=== PATIENT | female | born 1990 | race Caucasian/White ===

== ENCOUNTER 2016-05-29 10:04 | Inpatient (IN) | payer OTHER ==
[2016-05-29] MEDS ORDERED: OXYTOCIN IN LR 500 ML IV ONE ×2 (10:35→10:45)
[2016-05-29] MEDS ORDERED: IV START KIT ONE (10:44)
[2016-05-29] MEDS ORDERED: OXYTOCIN 10 UNITS/ML VIAL ONE (10:44)
[2016-05-29] MEDS ORDERED: LACTATED RINGERS 1,000 ML ONE (10:45)
[2016-05-29] MEDS ORDERED: VANCOMYCIN HCL 1 G in SODIUM CHLORIDE 0.9% 250 ML IV SCH (10:45)
[2016-05-29] MEDS ORDERED: LIDOCAINE Viscous 2% 15 ML UDCUP ONE (10:45)
[2016-05-29] MEDS ORDERED: PUMP TUBING ONE (10:45)
[2016-05-29] MEDS ORDERED: LIDOCAINE 1% (PRES FREE) 30 ML VIAL ONE (10:45)
[2016-05-29] MEDS ORDERED: MINERAL OIL 25 ML BOT ONE (10:45)
[2016-05-29] MEDS ORDERED: FENTANYL/ROPIVACAINE EPIDURAL 250 ML EP ONE (10:46)
[2016-05-29] MEDS ORDERED: EPIDURAL PUMP SET ONE (10:46)
[2016-05-29] MEDS: LACTATED RINGERS 1,000 ML IV SCH ×3 (11:05→15:58)
[2016-05-29 11:25] LABS: HEMATOCRIT 36.9 % (37.0-47.0); HEMOGLOBIN 12.2 gm/l (12.0-16.0); MEAN CELL VOLUME 88.5 fl (81.0-99.0); MEAN CORPUSCULAR HEMOGLOBIN 29.3 pg (27.0-31.0); MEAN CORPUSCULAR HGB CONC 33.1 g/dl (33.0-37.0); RED CELL DISTRIBUTION WIDTH 14.6 % (11.5-14.5)
[2016-05-29] MEDS: FENTANYL/ROPIVACAINE EPIDURAL 250 ML EP SCH (11:35)
--- NOTE | 2016-05-29 11:46 | PCMAN ---
OB Admission Note - History : 4 Term: 3 : 0 Abortions (S&E): 0 Livin EDC:: 05/23/16 Gestational Age (weeks): 40 Days (#/7): 6 Admit Cervical Dilation:: 5 Admit Cervical Effacement (%):: 80 Admit Station:: -2 Membrane Status: Intact Labor Onset (Date): 05/29/16 Labor Onset (Time): 07:30 Contractions: Yes Contraction Frequency:: Q4 mins Heart Rate:: 140 Status:: Category 1, moderate variability, accels present, no decels EFW:: 8 lb Summary of Course:: 25 yo at 40 6/7 weeks, active labor. GBS positive, PCN allergic. Unfortunately sensitivities not checked, so will plan to use Vancomycin for IAP. Tdap 02/17/16 Flu 12/16/15 PMHx: neg PSHx: cholecystectomy 2010 SOCHx: former smoker, quit 11/2014. Exposure to 2nd hand smoke. Denies etoh or illicit drugs OBHx: 2010 39 wk , induction 8 lb 3.8oz 2012 38 wk 6lb 5oz 2013 39 wk , induction 7lb 9oz PP Plans: formula or pumping, [facility] - Labs Blood Type: A (+) positive Hct/Hgb:: 33.8/11.0 Rubella Status: Immune GBS Status: Positive Other Labs:: Antibody neg HIV NR HBSAg NR RPR NR GC/CT neg 1hr glucola 101 - Review of Systems Denies LOF or VB, reports good movement. Denies RAMOS, visual changes or RUQ pain. - Physical Exam General: Afebrile, No Acute Distress Psych/Mental Status: Mood/Affect Appropriate Neurological: Grossly Intact, Normal Gait, Normal Speech HEENT: Atraumatic, Mucous membr. moist/pink Lungs: Clear to Auscultation Bilaterally, Normal Air Movement Cardiovascular: Regular Rate and Rhythm, Normal S1, Normal S2 Genitourinary: Normal Female Genitalia Extremities: Full ROM Skin: Normal Color, Warm, Dry - Problems (1) Active labor at term Status: Acute Code: [id number]/Plan: 25 yo at 40 6/7 weeks, labor, GBS pos - PCN allergy and sensitivities not done. IAP started with Vancomycin - desires epidural for pain control - Expectant management (2) Positive GBS test Status: Acute Code: B95.1Assessment/Plan: Faustinoo for IAP
[2016-05-29 13:08] VITALS: BMI 30.5
[2016-05-29] MEDS ORDERED: METOCLOPRAMIDE HCL 5 MG/ML 2ML VIAL IV PRN (14:21)
[2016-05-29] MEDS ORDERED: EPHEDRINE SULFATE 50 MG/ML 1ML VIAL IV PRN (14:21)
[2016-05-29] MEDS ORDERED: ONDANSETRON 4 MG/2ML 2 ML VIAL IV PRN (14:21)
[2016-05-29] MEDS ORDERED: NALOXONE HCL 0.4 MG/ML VIAL IV PRN (14:21)
[2016-05-29] MEDS ORDERED: SODIUM CHLORIDE 0.9% 500 ML IV PRN (14:21)
[2016-05-29] MEDS ORDERED: DIPHENHYDRAMINE HCL 50 MG/1 ML VIAL IV PRN (14:21)
[2016-05-29] MEDS ORDERED: NALBUPHINE HCL 20 MG/ML AMP IV PRN (14:21)
[2016-05-29] MEDS ORDERED: LACTATED RINGERS 500 ML IV PRN (14:21)
--- NOTE | 2016-05-29 15:57 | PDOC36 ---
Provider Note Subject: MD Interval Note Note: Patient comfortable with epidural. SVE 8/100/-2. AROM clear. Vancomycin started at 1110. FHT: 120, moderate variability, accels present, no decels. Category 1 TOCO: Q3 mins A/P: 25 yo at 40 6/7 wks, labor, GBS pos - now s/p adequate IAP - AROM clear - expectant management
[2016-05-29] MEDS ORDERED: BENZOCAINE/MENTHOL 60 APPLIC/BOT TP PRN (16:42)
[2016-05-29] MEDS ORDERED: DOCUSATE SODIUM 100 MG CAPSULE PO PRN (16:42)
[2016-05-29] MEDS ORDERED: LANOLIN 50 APPLIC/7G TUBE TP PRN (16:42)
[2016-05-29] MEDS ORDERED: HYDROCODONE/ACETAMINOPHEN 5/325MG TABLET PO PRN (16:42)
--- NOTE | 2016-05-29 16:53 | PCMDEL ---
Delivery Note - Labor 1st stage (hr/min):: 8 hrs 44 min 2nd stage (hr/min):: 17 min 3rd stage (hr/min):: 4 min Total (hr/min):: 9 hrs 1 min Pushed (hr/min):: 10 mins - Delivery Delivery (Date): 05/29/16 Delivery (Time): 16:31 Gender: Female Position: OA Umbilical Cord: 3 Vessel Delayed Cord Clamping:: < 1-2 min 1 Minute Total: 9 5 Minute Total: 9 Placenta:: 16:35 EBL:: 100 mL Perineum:: intact Suture:: none Anesthesia/Meds:: Epidural, Vancomycin for IAP Length ROM:: 39 min Comments:: of NB girl, apgars 9/9. Vigorous infant handed to mom, cord clamped and cut after 1 minute delay. Cord blood obtained. Placenta delivered and grossly normal. No lacerations. EBL 100 mL.
[2016-05-29] MEDS: IBUPROFEN 800 MG TABLET PO PRN (23:10)
[2016-05-30] MEDS: IBUPROFEN 800 MG TABLET PO PRN ×2 (06:26→14:22)
[2016-05-30 06:58] LABS: HEMATOCRIT 36.9 % (37.0-47.0); HEMOGLOBIN 12.1 gm/l (12.0-16.0)
[2016-05-30] MEDS: FENTANYL/ROPIVACAINE EPIDURAL 250 ML EP SCH (07:42)
--- NOTE | 2016-05-30 10:13 | PDOC44 ---
- Subjective Day: 1 Describes some pain only when she gets up from bed. Pain located in uterus. Reports Flatus, Reports Pain Tolerable, Reports Lochia Light - Objective Temp Pulse Resp BP Pulse Ox 98.7 F 80 16 111/50 05/30/16 08:13 05/30/16 08:13 05/30/16 08:13 05/30/16 08:13 Lab Results 05/30/16 05/29/16 06:30 11:05 WBC 7.9 RBC 4.17 L Hgb 12.1 12.2 Hct 36.9 L 36.9 L Plt Count 153 05/29/16 11:05 RDW 14.6 H Current Medications Generic Name Dose Route Start Last Admin Trade Name Freq PRN Reason Stop Dose Admin Acetaminophen/Hydrocodone Bitart 1 - 2 tab 05/29/16 16:42 [place] 5/325 PO Q4H PRN Pain (Moderate) Benzocaine/Menthol 1 applic 05/29/16 16:42 Dermoplast TP PRN PRN Patient Comfort Docusate Sodium 100 mg 05/29/16 16:42 Colace PO DAILY PRN Comfort Emollient Ointment 1 applic 05/29/16 16:42 [id number] TP PRN PRN sore nipples Ropivacaine/Fentanyl/NS 250 mls @ 0 mls/hr 05/29/16 11:44 05/30/16 07:42 Fentanyl 2 Mcg/Ml + Ropivacaine 0.125% Ep Bag EP Not Given EPI SALMA Protocol Per Protocol Ibuprofen 800 mg 05/29/16 16:42 05/30/16 06:26 Motrin PO 800 mg Q6H PRN Administration Pain (Mild) Sodium Chloride 10 ml 05/29/16 10:35 05/29/16 18:29 Normal Saline 10ml Flush IV 10 ml PRN PRN Administration IV Flush Sodium Chloride 10 ml 05/29/16 16:42 Normal Saline 10ml Flush IV PRN PRN IV Flush - Physical Exam General: Afebrile, No Acute Distress Psych/Mental Status: Mood/Affect Appropriate, Bonding Well Neurological: Alert, Oriented x 4 Lungs: Clear to Auscultation Bilaterally Cardiovascular: Regular Rate and Rhythm Breast: Nipples Intact Fundus: Firm, Midline Extremities: Full ROM, No Edema, No Tenderness Skin: Normal Color, Warm, Dry, Intact, No Rash - Problems:Assessment/Plan (1) (normal spontaneous vaginal delivery) Status: AcuteAssessment/Plan: Nl exam and vitals. Afebrile, c/o pain with movement only. Difficulties with BF and wants to pump but having a difficult time to getting any milk out. - RN to see her later -scheduled Ibuprofen q 6hrs Disposition: Anticipate DC Home Tomorrow
[2016-05-30] MEDS: LACTATED RINGERS 1,000 ML IV SCH (18:43)
--- NOTE | 2016-05-31 09:42 | PDOC39B ---
Hospital Course: ADMIT DATE: 05/29/16 DISCHARGE DATE: 05/31/16 ADMISSION DIAGNOSES: Post Date Labor GBS Positive (PCN Allergic) PROCEDURES/EVENTS: HOSPITAL COURSE: 25 yo G4 now [id number] admitted on 05/29/16 around 12:00 at 40 6/7 wks in active labor. Pt was GBS+ and was PCN allergic. Sensitivities had not been obtained so she was given Vancomycin. She AROMd around 1400 and delivered a viable female via with Apgars of 9/9. EBL was 100 mL, no major complications. No lacerations noted. Her course was uncomplicated. By the day of discharge the patient was ambulating, eating, voiding, and passing flatus without difficulty. Pain controlled and lochia appropriate. She is . - Physical Exam Vital Signs: Temp Pulse Resp BP Pulse Ox 98.8 F 66 16 112/50 05/31/16 03:03 05/31/16 03:03 05/31/16 03:03 05/31/16 03:03 General: Afebrile Psych/Mental Status: Bonding Well Neurological: Oriented x 4 Lungs: Clear to Auscultation Bilaterally Cardiovascular: Regular Rate and Rhythm Fundus: Firm, Below Umbilicus Skin: Warm, Dry - Discharge Diagnosis (1) (normal spontaneous vaginal delivery) Status: AcuteAssessment/Plan: Nl exam and vitals. Afebrile Difficulties with BF and wants to pump but having a difficult time to getting any milk out. consulted. Otherwise doing well OK to DC home today. - Discharge Plan Condition: Stable Instruction Forms: Vaginal Discharge Instructions Prescriptions: Docusate Sodium [COLACE 100 MG CAPSULE (SHF)] 100 mg PO DAILY PRN #60 PRN Reason: Comfort Ibuprofen [IBUPROFEN 800 MG TABLET (SHF)] 800 mg PO Q6H PRN #60 PRN Reason: Pain (Mild) Follow-Up: Heaven Bright MD [Primary Care Provider] - In 6 weeks
[2016-05-31] MEDS: IBUPROFEN 800 MG TABLET PO PRN (10:15)
[2016-05-31 10:18] VITALS: BP 115/65
== END 2016-05-31 12:48 | disposition home or self-care (01) | DRG 775 ==
LOC: FBCOUT 10:04 → FBC 10:06 → FBCOUT 10:36 → FBC 10:37
PROVIDERS: ADMIT Family Medicine; ATTEND Family Medicine
PROC: 10E0XZZ Delivery of Products of Conception, External Approach (ICD-10-PCS; principal; 2016-05-29)
PROC: 10907ZC Drainage of Amniotic Fluid, Therapeutic from Products of Conception, Via Natural or Artificial Opening (ICD-10-PCS; 2016-05-29)
DX: O99.824 Streptococcus B carrier state complicating childbirth (principal); O99.334 Smoking (tobacco) complicating childbirth; F17.211 Nicotine dependence, cigarettes, in remission; O48.0 Post-term pregnancy; Z3A.40 40 weeks gestation of pregnancy; Z37.0 Single live birth; Z88.0 Allergy status to penicillin